=== PATIENT | female | born 1990 | race Caucasian/White ===

== ENCOUNTER 2017-10-17 11:46 | Day surgery (SDC) | payer MEDICAID, OTHER ==
[2017-10-17 12:15] VITALS: BMI 31.9
[2017-10-17 12:16] VITALS: BP 129/63; TEMP 98
[2017-10-17] MEDS ORDERED: Acetaminophen 500 MG TAB PO SCH (12:45)
[2017-10-17] MEDS ORDERED: Lactated Ringer's 1,000 ML IV SCH (12:45)
--- NOTE | 2017-10-17 12:48 | PDOC.FPROB ---
FMR OB H&P: HPI - History of Present Illness Chief Complaint: Headache History of Present Illness: 27 y/o at 34.2 wks by 17.3 wk sono consistent with LMP presents 2/2 concerns about elevated BP w/ associated headache. Pt was seen at [facility] yesterday w/ one elevated BP at 141 SBP and subsequent pressure in the low 130's. Pt and mother report that there were concerns about her elevated BP as she was also endorsing some headache and blurry vision. Blood and urine labs were ordered at [facility] and she was sent home w/ ER percautions for Pre-eclampsia including worsening headache. Pt reports that she continued to have headache and woke-up with TORRES this AM. She notes that her headache is still present, but is better than it was when she first awoke. Also endorsing some blurry vision with this. Denies any abdominal pain. Has not tried taking any medication at home for her headache today. Denies any problems with this . No hx of Pre-E or gestational HTN during her prior pregnancies. Primary Care Physician: [facility] Sung Mcghee FMR OB H&P: Current - Care : 3 Para: 2 Gestational age: 34.2 Due date: 11/22/17 Dating Criteria: 17.3 wk sono Course/Complications: chlamydia s/p treatment FMR OB H&P: History - Past Medical History PMH: Asthma Tobacco use - Surgical History Sx History: None - Family History Family History: HTN FMR OB H&P: Medications - Current Home Medications: Medication Instructions Recorded Confirmed Type Vitamin 1 tablet PO DAILY 05/01/14 10/17/17 History Allergies/Adverse Reactions: Allergies Allergy/AdvReac Type Severity Reaction Status Date / Time codeine Allergy Rash Verified 10/17/17 12:10 FMR OB H&P: ROS - Review of Systems Eyes: reports: vision changes Gastrointestinal: denies: abdominal pain Neurologic: reports: headache FMR OB H&P: Vital Signs - Maternal Vital signs: Vital Signs - First Documented Temp Pulse Resp BP 98.0 F 70 18 129/63 10/17/17 12:10 10/17/17 12:10 10/17/17 12:10 10/17/17 12:10 - Heart Tones Baseline: 130 Variability: moderate Acceleration: present FMR OB H&P: Physical Exam - Physical Exam General: NAD, awake, alert and oriented HEENT: normocephalic and atraumatic Chest: non-tender to palpation Heart: RRR, normal S1/S2 General: CTAB, no respiratory distress Abdomen: gravid Neurological: cranial nerves II through XII intact FMR OB H&P: A/P - Problem List (1) Headache Status: Acute Code(s): R51 - HEADACHE Assessment and Plan: Patient reportedly with elevated BP x1 >140 SBP at [facility] yesterday and also w/ elevated pressures at another prior visit, but unsure of the exact values W/ headache and some vision changes w/ patient and mother concerned for possible pre-eclampsia BP 120's/60's x3 since arrival Blood work obtained at [facility] yesterday including CBC and CMP which we have requested and is being faxed over [facility] w/ reactive strip Will check Urine Protein/Cr ratio to complete Pre-E r/o Give 1 gram of tylenol and 1 L LR and eval for improvement/resolution of TORRES Discussion: Date/Time: 10/17/17 0854 This H&P was discussed with [] and [] who agree with the above documentation and plan. Attending Addendum - Attending Addendum Date/Time: 10/17/17 9487 I personally evaluated the patient and discussed the management with Dr. Trotter. I agree with the History, Examination, Assessment and Plan documented above with any addition or exceptions noted below. No e/o preeclampsia. TORRES resolved with tylenol. status reassuring with reactive NST. D/c home with precautions.
[2017-10-17 13:51] LABS: Creatinine, Urine 81.43 mg/dL (47-110); Protein, Urine Random Quant Less than 10 mg/dL (1-14)
--- NOTE | 2017-10-17 20:49 | PDOC.EVN ---
Addendum entered and electronically signed by Matt Trotter MD 10/17/17 21: 06: Please note the time of this note is incorrect as it was written after the fact. Time of these observations and medical decision making were performed in conjunction with my attending physician Dr. Jannie Augustin just prior to discharge at approximately 1430. Original Note: Event Note - Event Note Event Note: Pt w/ BP's ranging from 90's-120s SBP and 50's-60's DBP. Blood work obtained at [facility] yesterday reviewed (CBC, CMP, Urine protein/Cr ratio) which were all normal and without evidence of thrombocytopenia, transaminitis, or elevated Urine Pro/ Cr ratio. Repeat Urine Protein/Cr ratio obtained also normal. Pt's headache resolved s/p administration of 1 gram of tylenol and 1L LR. Advised that she can use tylenol at home if sxs return and discussed return percuations such as BP >140/90 in the setting of intractable headache, vision changes, RUQ abdominal pain, and worsening edema. Pt and family member in room expressed understanding and all questions answered prior to discharge home. Pt to follow- up with [facility] at her regularly scheduled appointment. <Matt Trotter - Last Filed: 10/17/17 20:45> Attending Addendum - Attending Addendum Date/Time: 10/17/172246 Please see my note addendum on H&P documentation. <Jannie Augustin - Last Filed: 10/17/17 22:48>
== END 2017-10-17 14:35 | disposition home or self-care (01) ==
LOC: L&D/OP 11:46
PROVIDERS: ATTEND Obstetrics & Gynecology
DX: O99.89 Other specified diseases and conditions complicating pregnancy, childbirth and the puerperium (principal); R51 Headache; O99.512 Diseases of the respiratory system complicating pregnancy, second trimester; J45.909 Unspecified asthma, uncomplicated; Z3A.17 17 weeks gestation of pregnancy; Z87.891 Personal history of nicotine dependence; Z79.899 Other long term (current) drug therapy; Z88.5 Allergy status to narcotic agent
CPT/HCPCS: 82570; 84156; 96360; 96361; 99283

== ENCOUNTER 2017-11-19 14:48 | Inpatient (IN) | payer MEDICAID, OTHER, SELFPAY ==
--- NOTE | 2017-11-19 15:11 | PDOC.FPROB ---
FMR OB H&P: HPI - History of Present Illness Chief Complaint: headache Indentification: 27yo History of Present Illness: 27yo @ 40weeks EGA by LMP and 17.3 week US presents for 1 day hx of headach, visual changes, and L arm tingling. Pt presented to [facility] and then was instructed to come to [place] as she was found to have elevated BP. Pt reports sympom onset was today. Visual changes are "white spots" that started/persisted today, L arm tingling is in fingertips. Reports pt felt all three symptoms in similar manner weeks ago when she had elevated BP then but was sent home after some lab tests. On checkout from clinic, UA there had positive nitrites Primary Care Physician: Harshad - [facility] FMR OB H&P: Current - Care : 3 Para: 2001 Gestational age: 40 Due date: 11/19/2017 Dating Criteria: LMP/17.3week US Total weight gain: 61 lb Course/Complications: Poor care, recent incarceration, Chlamydia s/p tx, E.coli UTI s/p tx, elevated BP during (no dx of gestational htn or pre-e) - OB Labs Blood type: O RH: positive Antibody Screen: negative HIV: negative GBS: positive Additional labs: HepC negative, PPD negative FMR OB H&P: History - Past Medical History PMH: Asthma - OB History OB History: 1 2013: healthy male, post term 2 2015: female born at 38weeks EGA, had "stomach issues" possible gastroschisis, had to have surgery - Surgical History Sx History: none - Social History Social History: Tobacco- 1/2 ppd x 2years EtOH- denies Drugs- denies FMR OB H&P: Medications - Current Home Medications: Medication Instructions Recorded Confirmed Type Vitamin 1 tablet PO DAILY 05/01/14 11/19/17 History ALButerol Sulfate [Ventolin] 3 ml NEB Q8HR PRN 11/19/17 11/19/17 History Allergies/Adverse Reactions: Allergies Allergy/AdvReac Type Severity Reaction Status Date / Time codeine Allergy Rash Verified 10/17/17 12:10 FMR OB H&P: ROS - Review of Systems General: denies: fever/chills Eyes: reports: vision changes. denies: double vision, scotomas ENT: denies: nasal congestion, rhinorrhea, sinus pain/pressure Cardiovascular: reports: edema. denies: chest pain, palpitation, orthopnea Respiratory: denies: cough, congestion, shortness of breath Gastrointestinal: reports: abdominal pain (mild discomfort in bilat upper quadrants) Genitourinary (Female): reports: contractions. denies: vaginal discharge ( infrequent), vaginal pain, vaginal bleeding Musculoskeletal: denies: pain, stiffness Neurologic: reports: headache, other (paresthesia per hpi) Integumentary: denies: rash, lesions Endocrine: denies: polydipsia, polyuria Hematologic/Lymphatic: denies: prolonged or excessive bleeding FMR OB H&P: Vital Signs - Heart Tones Baseline: 120 Variability: moderate Acceleration: present Deceleration: absent Category: category 1 [place] contractions every: 6-10min FMR OB H&P: Physical Exam - Physical Exam General: NAD, awake, alert and oriented HEENT: normocephalic and atraumatic, PERRLA, EOMI, MMM Neck: supple, trachea midline Chest: non-tender to palpation Heart: RRR, normal S1/S2 General: CTAB, no respiratory distress Abdomen: gravid, bowel sound present Musculoskeletal: pulses present, no atrophy Skin: no rash, good tugor Lymphatic: no unusual bruising or bleeding, no purpura, no petechia Psychiatric: good judgement and insight, normal mood and affect - Pelvic Exam Vulva: no lesions, no blood SVE: 1/thick/-3 Godinez score: 2 FMR OB H&P: A/P - Problem List (1) Gestational hypertension Current Visit: Yes Status: Acute Code(s): O13.9 - GESTATIONAL HTN W/O SIGNIFICANT PROTEINURIA, UNSP TRIMESTER (2) Encounter for induction of labor Current Visit: Yes Status: Acute Code(s): Z34.90 - ENCNTR FOR SUPRVSN OF NORMAL , UNSP, UNSP TRIMESTER (3) UTI (urinary tract infection) Current Visit: Yes Status: Acute (4) GBS (group B streptococcus) infection Current Visit: Yes Status: Acute Code(s): A49.1 - STREPTOCOCCAL INFECTION, UNSPECIFIED SITE Disposition: This is a 27yo at 40w EGA by LMP confirmed by 17.3 week US presents with gestational htn. Gestational HTN A- Pt has had intermittent high BPs with SBP in 140's throughout and in hospital with repeat elevated BPs. Most recent BP here is SBP 128. Pt has not been on medication. Though pt complains of additional headache and visual changes they do not sound like scotomas per her hx. P- Monitor BP -monitor for severe features of pre-e -U creatinine and protein -CMP, CBC -Tylenol PRN Induction of Labor A- Godinez score of 2, contractions irregular P- will start cytotec -SVE q4hr GBS infection A- Pt is in early stages of IOL, tested positive for GBS at clinic P- Will start Penicillin when starting pitocin Asymptomatic UTI A- Pt had positive nitrite on UA at clinic. No dysuria. P- Ceftriaxone 1g Attending Addendum - Attending Addendum Date/Time: 11/19/17 7173 I personally evaluated the patient and discussed the management with Drs. Daniels & Taz. I agree with the History, Examination, Assessment and Plan documented above with any addition or exceptions noted below. Multip with unfavorable cervix at term. TORRES and visual symptoms have resolved. Known to be GBS positive. Possible UTI with positive nitrite. FOB incarcerated. Seems to have good family support with [id number]. Consider UDS. Will receive rocephin for UTI and PCN for GBS prophylaxis. Discussed IOL with patient and family. Anticipatory guidance given. Date/Time: 11/20/17 5734 I personally evaluated the patient and discussed the management with Dr. Daniels and Luli at time of admission. I agree with the History, Examination, Assessment and Plan documented above with any addition or exceptions noted below.
[2017-11-19] MEDS ORDERED: Acetaminophen 500 MG TAB PO PRN (15:36)
[2017-11-19 15:45] LABS: #Eosinphils 0.1 thou/uL (0.0-0.7); #Lymphocytes 2.7 thou/uL (1.20-3.40); #Monocytes 0.9 thou/uL (0.11-0.59); #Neutrophils 7.1 thou/uL (1.40-6.50); %Basophils 0.4 % (0.0-1.0); %Eosinophils 0.9 % (0.0-10.0); %Monocytes 8.3 % (0.0-10.0); %Neutrophils 65.4 % (42.0-75.0); Hemoglobin 11.5 g/dL (12.0-16.0); Mean Corpuscular Hemoglobin 30.3 pg (27.0-31.0); Mean Corpuscular Volume 91.6 fL (78.0-98.0); Platelet Count 224 thou/uL (130-400); RBC Distribution Width 12.3 % (11.5-14.5); Red Blood Cell (RBC) Count 3.81 mill/uL (4.20-5.40); White Blood Cell (WBC) Count 10.8 thou/uL (4.8-10.8)
[2017-11-19 15:50] LABS: Creatinine, Urine 61.74 mg/dL (47-110); Protein, Urine Random Quant Less than 10 mg/dL (1-14)
[2017-11-19 16:00] VITALS: BMI 33.7
[2017-11-19 16:02] LABS: ALT (SGPT) 10 U/L (8-55); AST (SGOT) 14 U/L (5-34); Albumin 3.3 g/dL (3.5-5.0); Alkaline Phosphatase 158 U/L (40-150); Anion Gap 13 mmol/L (10-20); BUN (Urea Nitrogen) 11 mg/dL (7.0-18.7); Bilirubin, Total 0.8 mg/dL (0.2-1.2); Calc. Creatinine Clearance 186 mL/min (70-130); Calcium 9.5 mg/dL (7.8-10.44); Carbon Dioxide 19 mmol/L (22-29); Chloride 107 mmol/L (98-107); Estimated GFR-MDRD Greater than 90; Globulin 3.1 g/dL (2.4-3.5); Glucose 109 mg/dL (70-105); Potassium 4.3 mmol/L (3.5-5.1); Protein, Total 6.4 g/dL (6.0-8.3); Sodium 135 mmol/L (136-145)
[2017-11-19] MEDS ORDERED: Misoprostol 100 MCG TAB VAG ONE (16:21)
[2017-11-19] MEDS ORDERED: Ondansetron HCl/PF 4 MG/2 ML Vial IVP PRN (16:22)
[2017-11-19] MEDS ORDERED: Promethazine HCl 25 MG/ML VIAL IM PRN (16:22)
[2017-11-19 17:08] LABS: Syphilis Antibody Nonreactive (Nonreactive); Syphilis Antibody Index 0.03 S/CO (<1.00 Non-Reactive)
[2017-11-19] MEDS: Lactated Ringer's 1,000 ML IV SCH (17:15)
[2017-11-19] MEDS: cefTRIAXone\\ROCEPHIN 1 GM in Sodium Chloride 0.9% 100 ML IVPB SCH (17:51)
[2017-11-19] MEDS ORDERED: Misoprostol 100 MCG TAB VAG SCH (18:00)
[2017-11-19 18:06] LABS: Amphetamine Not Detected (NotDetected); Barbiturates Screen Not Detected (NotDetected); Benzodiazepine Screen Not Detected (NotDetected); Cocaine Metabolite Screen Not Detected (NotDetected); Medtox Control Line Valid? VALID (VALID); Medtox Reader # READER 4; Methadone Not Detected (NotDetected); Methamphetamine Not Detected (NotDetected); Opiate Screen Not Detected (NotDetected); Oxycodone Screen Not Detected (NotDetected); Phencyclidine (PCP) Not Detected (NotDetected); THC/Cannabinoid Screen Not Detected (NotDetected); Tricyclic Screen Not Detected (NotDetected)
[2017-11-19 18:13] LABS: HIV (1/2) Antibody/Antigen Non-Reactive (NonReactive); HIV 1/2 INDEX 0.08 S/CO (<1.00); Hep B Surf Ag Non-Reactive S/CO (NonReactive)
--- NOTE | 2017-11-19 22:35 | PDOC.LDPN ---
Labor & Delivery Progress Note - Subjective Subjective: comfortable - Objective Vital signs reviewed and normal: yes General: NAD, resting Dilation: 2 cm Effacement: 50% Station: -3 FHT: category 1, variability present (moderate) [place] contractions every: 1-2 minutes - Assessment (1) Encounter for induction of labor Code(s): Z34.90 - ENCNTR FOR SUPRVSN OF NORMAL , UNSP, UNSP TRIMESTER Current Visit: Yes Status: Acute (2) GBS (group B streptococcus) infection Code(s): A49.1 - STREPTOCOCCAL INFECTION, UNSPECIFIED SITE Current Visit: Yes Status: Acute (3) Gestational hypertension Code(s): O13.9 - GESTATIONAL HTN W/O SIGNIFICANT PROTEINURIA, UNSP TRIMESTER Current Visit: Yes Status: Acute -: This is a 27 yo female at 40 wks by LMP/ 17.3wk sono Induction of labor -Cytotec given at 1900 with a change from 1/0/-3 to 2/50/-3 at present check. FHTs shows Cat 1 with contractions every 1-2 minutes. We are holding off on a second dose of cytotec at this time due to contractions and will reassess in 2 hrs. GBS positive -Due to change we are starting penicillin at this time Possible gestational HTN -BP WNL <Aman Bingham - Last Filed: 11/19/17 22:32> - Assessment (1) Gestational hypertension Code(s): O13.9 - GESTATIONAL HTN W/O SIGNIFICANT PROTEINURIA, UNSP TRIMESTER Current Visit: Yes Status: Acute (2) Encounter for induction of labor Code(s): Z34.90 - ENCNTR FOR SUPRVSN OF NORMAL , UNSP, UNSP TRIMESTER Current Visit: Yes Status: Acute (3) UTI (urinary tract infection) Current Visit: Yes Status: Acute (4) GBS (group B streptococcus) infection Code(s): A49.1 - STREPTOCOCCAL INFECTION, UNSPECIFIED SITE Current Visit: Yes Status: Acute <Jordan Connell - Last Filed: 11/21/17 07:37> Attending Addendum - Attending Addendum Date/Time: 11/21/17 0737 I personally evaluated the patient and discussed the management with Dr. Bingham I agree with the History, Examination, Assessment and Plan documented above with any addition or exceptions noted below. <Jordan Connell - Last Filed: 11/21/17 07:37>
[2017-11-19] MEDS ORDERED: Penicillin G Potassium 5 MILL.UNITS in Sodium Chloride 0.9% 100 ML IVPB SCH (23:00)
--- NOTE | 2017-11-20 00:50 | PDOC.LDPN ---
Labor & Delivery Progress Note - Subjective Subjective: comfortable, no concerns - Objective Vital signs reviewed and normal: yes General: NAD, resting Uterine fundus: non tender Dilation: 2 cm Effacement: 50% Station: -3 FHT: category 1, variability present [place] contractions every: 1-3 - Assessment (1) Encounter for induction of labor Code(s): Z34.90 - ENCNTR FOR SUPRVSN OF NORMAL , UNSP, UNSP TRIMESTER Current Visit: Yes Status: Acute (2) GBS (group B streptococcus) infection Code(s): A49.1 - STREPTOCOCCAL INFECTION, UNSPECIFIED SITE Current Visit: Yes Status: Acute (3) Gestational hypertension Code(s): O13.9 - GESTATIONAL HTN W/O SIGNIFICANT PROTEINURIA, UNSP TRIMESTER Current Visit: Yes Status: Acute Plan: continue plan of care -: This is a 27 yo female at 40.1 wks by LMP/ 17.3wk sono Induction of labor -Cytotec given at 1900. Unchanged since last examination. FHTs shows Cat 1 with contractions every 1-3 minutes. We will start pitocin after 2nd dose of penicillin GBS positive -PCN x1 Possible gestational HTN -BP WNL
[2017-11-20] MEDS: Pen G 2.5 MILL.UNITS/50 ML BAG IVPB SCH ×5 (03:15→21:05)
--- NOTE | 2017-11-20 03:16 | PDOC.LDPN ---
Labor & Delivery Progress Note - Subjective Subjective: comfortable, no concerns - Objective Vital signs reviewed and normal: yes General: NAD, resting Dilation: 2 Effacement: 75% Station: -3 FHT: category 1, variability present (Baseline 120, moderate variability, no decels, no accels) - Assessment (1) Encounter for induction of labor Code(s): Z34.90 - ENCNTR FOR SUPRVSN OF NORMAL , UNSP, UNSP TRIMESTER Current Visit: Yes Status: Acute (2) GBS (group B streptococcus) infection Code(s): A49.1 - STREPTOCOCCAL INFECTION, UNSPECIFIED SITE Current Visit: Yes Status: Acute (3) Gestational hypertension Code(s): O13.9 - GESTATIONAL HTN W/O SIGNIFICANT PROTEINURIA, UNSP TRIMESTER Current Visit: Yes Status: Acute Plan: continue plan of care -: This is a 27 yo female at 40.1 wks by LMP/ 17.3wk sono Induction of labor -Cytotec given at 1900. 2/75/-3 at this check. FHTs shows Cat 1 with contractions every 1-5 minutes. We are starting the second dose of PCN as well as pitocin. GBS positive -PCN x2 Possible gestational HTN -BP WNL
[2017-11-20] MEDS: NS w/ Oxytocin 10 units 500 ML IV SCH ×2 (03:29→16:19)
[2017-11-20] MEDS: Lactated Ringer's 1,000 ML IV SCH ×2 (07:09→14:37)
--- NOTE | 2017-11-20 07:10 | PDOC.LDPN ---
Labor & Delivery Progress Note - Subjective Subjective: comfortable, painful contractions (mildly), other (no headache/ visual disturbance/cp/sob) - Objective Vital signs reviewed and normal: yes (BP 122/78, HR 61) General: NAD, resting Uterine fundus: non tender SVE: 3/75/-3 FHT: category 1 [place] contractions every: 3min Resuscitative measures: maternal IV fluids - Assessment (1) Gestational hypertension Code(s): O13.9 - GESTATIONAL HTN W/O SIGNIFICANT PROTEINURIA, UNSP TRIMESTER Current Visit: Yes Status: Acute (2) Encounter for induction of labor Code(s): Z34.90 - ENCNTR FOR SUPRVSN OF NORMAL , UNSP, UNSP TRIMESTER Current Visit: Yes Status: Acute (3) UTI (urinary tract infection) Current Visit: Yes Status: Acute (4) GBS (group B streptococcus) infection Code(s): A49.1 - STREPTOCOCCAL INFECTION, UNSPECIFIED SITE Current Visit: Yes Status: Acute Plan: continue plan of care -: This is a 27 yo female at 40.1 wks by LMP/17.3wk sono Induction of labor -Cytotec given at 1900. 375/-3 at this check 0710. FHTs shows Cat 1 with contractions every 3 minutes. -continue pitocin GBS positive -PCN being administered Possible gestational HTN -BP WNL -no symptoms of pre-eclampsia <Jordan Daniels - Last Filed: 11/20/17 07:11> - Assessment (1) Gestational hypertension Code(s): O13.9 - GESTATIONAL HTN W/O SIGNIFICANT PROTEINURIA, UNSP TRIMESTER Current Visit: Yes Status: Acute (2) Encounter for induction of labor Code(s): Z34.90 - ENCNTR FOR SUPRVSN OF NORMAL , UNSP, UNSP TRIMESTER Current Visit: Yes Status: Acute (3) UTI (urinary tract infection) Current Visit: Yes Status: Acute (4) GBS (group B streptococcus) infection Code(s): A49.1 - STREPTOCOCCAL INFECTION, UNSPECIFIED SITE Current Visit: Yes Status: Acute <Willie Banegas - Last Filed: 11/20/17 10:41> Attending Addendum - Attending Addendum Date/Time: 11/20/17 1040 I personally evaluated the patient and discussed the management with Dr. Daniels. I agree with the History, Examination, Assessment and Plan documented above with any addition or exceptions noted below. No pre-e. Continue care plan. Discussed with patient. All questions and concerns addressed. She is appreciative of care. <Willie Banegas - Last Filed: 11/20/17 10:41>
[2017-11-20] MEDS ORDERED: Fentanyl 4 mcg/Bup 0.1% Cadd 100 ML ONE ×3 (10:55→19:28)
[2017-11-20] MEDS ORDERED: Acetaminophen 325 MG TAB PO PRN (11:13)
[2017-11-20] MEDS ORDERED: diphenhydrAMINE 50 MG/ML VIAL IVP PRN (11:13)
[2017-11-20] MEDS ORDERED: Ondansetron HCl/PF 4 MG/2 ML Vial IVP PRN (11:13)
[2017-11-20] MEDS ORDERED: Naloxone HCl 0.4 mg/ml Vial IVP PRN ×2 (11:13)
[2017-11-20] MEDS ORDERED: Promethazine HCl 25 MG/ML VIAL IM PRN (11:13)
[2017-11-20] MEDS ORDERED: Eucerin (Mineral Oil/Petrolatum,White) 30 gm Jar TOP PRN (11:13)
[2017-11-20] MEDS ORDERED: ePHEDrine/0.9% NaCl/PF SYRINGE 50 mg/10 ml SLOW IVP PRN (11:13)
[2017-11-20] MEDS ORDERED: Lactated Ringer's 500 ML IV PRN (11:13)
[2017-11-20] MEDS ORDERED: fentaNYL Citrate/PF 400 MCG, Bupivacaine 0.5% 20 ML in Sodium Chloride 0.9% 72 ML EPIDURAL SCH (11:15)
[2017-11-20] MEDS ORDERED: Communication Order-Pharmacy FS SCH (11:15)
[2017-11-20] MEDS ORDERED: Fentanyl 4 mcg/Bup 0.1% Cadd 100 ML in Premix Bag 1 BAG EPIDURAL SCH (11:21)
--- NOTE | 2017-11-20 11:21 | PDOC.LDPN ---
Labor & Delivery Progress Note - Subjective Subjective: comfortable, other (more comfortable after epidural. No headache/cp/ sob/abd pain/paresthesia) - Objective Vital signs reviewed and normal: yes Abnormal vital signs: Some intermittent BPs in SBP 130's General: NAD, resting SVE: 3/75/-3 FHT: category 1 [place] contractions every: 2min Resuscitative measures: maternal IV fluids - Assessment (1) Gestational hypertension Code(s): O13.9 - GESTATIONAL HTN W/O SIGNIFICANT PROTEINURIA, UNSP TRIMESTER Current Visit: Yes Status: Acute (2) Encounter for induction of labor Code(s): Z34.90 - ENCNTR FOR SUPRVSN OF NORMAL , UNSP, UNSP TRIMESTER Current Visit: Yes Status: Acute (3) UTI (urinary tract infection) Current Visit: Yes Status: Acute (4) GBS (group B streptococcus) infection Code(s): A49.1 - STREPTOCOCCAL INFECTION, UNSPECIFIED SITE Current Visit: Yes Status: Acute Plan: continue plan of care, pitocin for augmentation -: This is a 27 yo female at 40.1 wks by LMP/17.3wk sono Medically indicated Induction of labor -Cytotec x1 given at 1900. 3/75/-3 at this check 1130, unchanged but pt having adequet frequency of contractions. FHTs shows Cat 1 with contractions every 2 minutes. -continue pitocin GBS positive -PCN being administered Gestational HTN -BP not near severe range -no symptoms of pre-eclampsia -continue to monitor
--- NOTE | 2017-11-20 13:39 | PDOC.LDPN ---
Labor & Delivery Progress Note - Subjective Subjective: comfortable (epidural in place) - Objective Vital signs reviewed and normal: yes General: NAD, resting Dilation: 3 Effacement: 75% Station: -3 FHT: category 1, variability present [place] contractions every: 3 min - Assessment (1) Encounter for induction of labor Code(s): Z34.90 - ENCNTR FOR SUPRVSN OF NORMAL , UNSP, UNSP TRIMESTER Current Visit: Yes Status: Acute (2) GBS (group B streptococcus) infection Code(s): A49.1 - STREPTOCOCCAL INFECTION, UNSPECIFIED SITE Current Visit: Yes Status: Acute (3) Gestational hypertension Code(s): O13.9 - GESTATIONAL HTN W/O SIGNIFICANT PROTEINURIA, UNSP TRIMESTER Current Visit: Yes Status: Acute Plan: continue plan of care, pitocin for augmentation (currently at 18) -: -Induction of labor check staying the same dilation, but more anterior FHT 110s with good variability, no decels, a couple accels pitocin up to 18 with contractions every 2-3 minutes continue with current management regimen, recheck in 2 hours -GBS positive has received adequate Fina, continue until delivery -gestational HTN most recent 109/55, no elevated BP levels since the last check
--- NOTE | 2017-11-20 16:37 | PDOC.LDPN ---
Labor & Delivery Progress Note - Subjective Subjective: comfortable - Objective Vital signs reviewed and normal: yes General: NAD, resting Dilation: 4.5 Effacement: 75% Station: -3 [place] contractions every: 2 minutes - Assessment (1) Encounter for induction of labor Code(s): Z34.90 - ENCNTR FOR SUPRVSN OF NORMAL , UNSP, UNSP TRIMESTER Current Visit: Yes Status: Acute (2) GBS (group B streptococcus) infection Code(s): A49.1 - STREPTOCOCCAL INFECTION, UNSPECIFIED SITE Current Visit: Yes Status: Acute (3) Gestational hypertension Code(s): O13.9 - GESTATIONAL HTN W/O SIGNIFICANT PROTEINURIA, UNSP TRIMESTER Current Visit: Yes Status: Acute Plan: continue plan of care -: -Induction of labor check staying the same dilation, but more anterior FHT 110s with good variability, no decels patient received epidural sometime late this morning pitocin up to 20 with contractions every 2-3 minutes continue with current management regimen, recheck around 17:00 and check to see if head is engaged and AROM would be possible -GBS positive has received adequate Fina, continue until delivery -gestational HTN most recent 111/, no elevated BP levels since the last check
[2017-11-20] MEDS ORDERED: Bupivacaine 0.25% HCL 30 ML VIAL ONE (21:00)
--- NOTE | 2017-11-20 21:47 | PDOC.LDPN ---
Labor & Delivery Progress Note - Subjective Subjective: comfortable - Objective Vital signs reviewed and normal: yes General: NAD, resting Uterine fundus: non tender Dilation: 5 Effacement: 75% Station: -2 FHT: category 2 (120/poor variablility/+ accels/no decels) [place] contractions every: 2-3min AROM: clear fluid IUPC placed: yes - Assessment (1) Encounter for induction of labor Code(s): Z34.90 - ENCNTR FOR SUPRVSN OF NORMAL , UNSP, UNSP TRIMESTER Current Visit: Yes Status: Acute (2) GBS (group B streptococcus) infection Code(s): A49.1 - STREPTOCOCCAL INFECTION, UNSPECIFIED SITE Current Visit: Yes Status: Acute (3) Gestational hypertension Code(s): O13.9 - GESTATIONAL HTN W/O SIGNIFICANT PROTEINURIA, UNSP TRIMESTER Current Visit: Yes Status: Acute (4) Drug use complicating Code(s): O99.320 - DRUG USE COMPLICATING , UNSPECIFIED TRIMESTER Current Visit: No Status: Acute Plan: pitocin for augmentation -: 27yo @ 40.1 weeks EGA by LMP and 17.3 week US Induction of labor - Successful AROM with clear fluid @ 2130 - IUPC smoothly placed - FHT 120s with poor variability, no decels - Comfortable with epidural - Pitocin at 20 with contractions every 2-3 minutes - Will monitor mvus and recheck in 2 hours GBS positive - Has received adequate penicillin G - Continue until delivery Gestational HTN - Most recent 58 - no elevated BP levels since the last check - Continue to monitor <Maricarmen Keller - Last Filed: 11/20/17 22:16> - Assessment (1) Gestational hypertension Code(s): O13.9 - GESTATIONAL HTN W/O SIGNIFICANT PROTEINURIA, UNSP TRIMESTER Current Visit: Yes Status: Acute (2) Encounter for induction of labor Code(s): Z34.90 - ENCNTR FOR SUPRVSN OF NORMAL , UNSP, UNSP TRIMESTER Current Visit: Yes Status: Acute (3) UTI (urinary tract infection) Current Visit: Yes Status: Acute Qualifiers: Urinary tract infection type: acute pyelonephritis Qualified Code(s): N10 - Acute pyelonephritis (4) GBS (group B streptococcus) infection Code(s): A49.1 - STREPTOCOCCAL INFECTION, UNSPECIFIED SITE Current Visit: Yes Status: Acute <Jordan Connell - Last Filed: 11/21/17 07:45> Attending Addendum - Attending Addendum Date/Time: 11/21/17743 I personally evaluated the patient and discussed the management with Dr. Keller I agree with the History, Examination, Assessment and Plan documented above with any addition or exceptions noted below. Doing well. Dysfunctional first stage. Will likely enter active phase following AROM & IUPC. Anticipate . <Jordan Connell - Last Filed: 11/21/17 07:45>
[2017-11-20] MEDS ORDERED: NS / Oxytocin 40 units/1000ml 1,000 ML ONE (23:08)
[2017-11-20] MEDS ORDERED: Misoprostol 200 MCG TAB ONE (23:08)
[2017-11-20] MEDS ORDERED: Lidocaine 1% (PF) 30 ML VIAL ONE (23:08)
[2017-11-20] MEDS ORDERED: Carboprost 250 MCG/ML AMP ONE (23:18)
[2017-11-20] MEDS ORDERED: Methylergonovine 0.2 MG/ML VIAL ONE (23:18)
[2017-11-21] MEDS ORDERED: NS / Oxytocin 40 units/1000ml 1,000 ML ONE (00:58)
[2017-11-21] MEDS ORDERED: NS / Oxytocin 40 units/1000ml 1,000 ML IV SCH (02:36)
[2017-11-21] MEDS ORDERED: Milk Of Magnesia 30 ML UDCUP PO PRN (02:36)
[2017-11-21] MEDS ORDERED: Bisacodyl 10 MG SUPP PR PRN (02:36)
[2017-11-21] MEDS: Pen G 2.5 MILL.UNITS/50 ML BAG IVPB SCH (02:50)
[2017-11-21] MEDS: Lactated Ringer's 1,000 ML IV SCH (02:50)
[2017-11-21] MEDS: cefTRIAXone\\ROCEPHIN 1 GM in Sodium Chloride 0.9% 100 ML IVPB SCH (02:50)
--- NOTE | 2017-11-21 06:52 | PDOC.PP ---
Post Progress Note Post Day #: 1 Subjective: Pt reports feeling well this morning with no complaints. Tolerating PO intake, urinating, denies any pain, minimal spotting. No BM or flatus. PO intake tolerated: yes Flatus: no Ambulation: yes Vital Signs (12 hours) Temp Pulse Resp BP Pulse Ox 11/21/17 03:40 98.0 F 71 16 125/70 11/21/17 02:05 98.2 F 86 16 110/68 98 Weight Weight 92.079 kg - Physical Examination General: NAD Cardiovascular: no m/r/g, RRR Respiratory: clear to auscultation bilaterally, non-labored breathing Abdominal: + bowel sounds, no distention Fundus firm & at: 3 cm below umbilicus Skin: no rash Neurological: no gross focal deficits Psychiatric: A&Ox3, normal affect Result Diagrams: 11/19/17 15:33 11/19/17 15:33 Additional Labs: Post Labs Blood Type O POSITIVE 11/19/17 17:21 Hep Bs Antigen Non-Reactive S/CO (NonReactive) 11/19/17 15:33 (1) Gestational hypertension Code(s): O13.9 - GESTATIONAL HTN W/O SIGNIFICANT PROTEINURIA, UNSP TRIMESTER Status: Acute (2) Encounter for induction of labor Code(s): Z34.90 - ENCNTR FOR SUPRVSN OF NORMAL , UNSP, UNSP TRIMESTER Status: Acute (3) UTI (urinary tract infection) Status: Acute (4) GBS (group B streptococcus) infection Code(s): A49.1 - STREPTOCOCCAL INFECTION, UNSPECIFIED SITE Status: Acute - Assessment/Plan 27yo who delivered a healthy TAGA boy via at 2335 on 11/20/2017 @ 40.1 weeks EGA by LMP and 17.3 week US Post Care A- Pt doing well, had 337 QBL. Good PO intake/ambulation/pain controll. No problems with breast feeding. P- continue to monitor, await flatus/BM Gestational HTN A- BP WNL, no headaches/visual disturbance P- continue to monitor GBS positive - status post penicillin G <Jordan Daniels - Last Filed: 11/21/17 07:08> Vital Signs (12 hours) Temp Pulse Resp BP Pulse Ox 11/21/17 08:20 98 11/21/17 08:00 97.7 F 54 L 20 131/78 95 11/21/17 03:40 98.0 F 71 16 125/70 11/21/17 02:05 98.2 F 86 16 110/68 98 Weight Weight 92.079 kg Result Diagrams: 11/19/17 15:33 11/19/17 15:33 Additional Labs: Post Labs Blood Type O POSITIVE 11/19/17 17:21 Hep Bs Antigen Non-Reactive S/CO (NonReactive) 11/19/17 15:33 (1) Gestational hypertension Code(s): O13.9 - GESTATIONAL HTN W/O SIGNIFICANT PROTEINURIA, UNSP TRIMESTER Status: Acute (2) Encounter for induction of labor Code(s): Z34.90 - ENCNTR FOR SUPRVSN OF NORMAL , UNSP, UNSP TRIMESTER Status: Acute (3) UTI (urinary tract infection) Status: Acute Qualifiers: Urinary tract infection type: acute pyelonephritis Qualified Code(s): N10 - Acute pyelonephritis (4) GBS (group B streptococcus) infection Code(s): A49.1 - STREPTOCOCCAL INFECTION, UNSPECIFIED SITE Status: Acute <Willie Banegas - Last Filed: 11/21/17 10:30> Attending Addendum - Attending Addendum Date/Time: 11/21/17 1030 I personally evaluated the patient and discussed the management with Dr. Daniels. I agree with the History, Examination, Assessment and Plan documented above with any addition or exceptions noted below. <Willie Banegas - Last Filed: 11/21/17 10:30>
[2017-11-21] MEDS: Ferrous Sulfate 325 MG TAB PO SCH ×2 (07:43→17:26)
--- NOTE | 2017-11-21 08:09 | OP-2 ---
DELIVERING PHYSICIAN: Dr. Maricarmen Keller, PGY-1 ATTENDING: Dr. Jordan Connell PROCEDURE: Spontaneous vaginal delivery. ANESTHESIA: Epidural. ESTIMATED BLOOD LOSS: 337 mL. PREOPERATIVE DIAGNOSES: 1. Term intrauterine , induction of labor. 2. GBS positive, adequately treated. 3. Gestational hypertension. POSTOPERATIVE DIAGNOSES: 1. Term intrauterine , delivered. 2. GBS positive, adequately treated. 3. Gestational hypertension. INDICATIONS: A 27-year-old female now G3, P3-0-0-3 presents for induction of labor due to post-term dates. DELIVERY NOTE: This is a 27-year-old female now G3, P3-0-0-3 at 41.1 weeks who delivered a viable ma sondra infant at 2335. Following an uneventful antepartum course, a vigorous male was delivered over an intact perineum in the occiput anterior position. Anterior shoulder and then remainder of the body w as delivered. No nuchal cord. The head was held down and mouth and nares were bulb suctioned. Cord clamped after delayed cord clamping and cut and cord blood collected. Placenta delivered intact in the Roberts presentation with a 3-vessel cord noted. Fundal massage was performed and the fundus was firm. The cervix and vagina were inspected and found to have a left ____ and then a minor tear that required no repair. The went to the nursery in good condition for routine care. Apg ars were 9 and 9 at 1 and 5 minutes respectively. The patient tolerated delivery well and went to po stpartum after routine recovery care.
[2017-11-21] MEDS: Ibuprofen 800 MG TAB PO SCH ×3 (08:32→23:44)
[2017-11-21] MEDS: Docusate Calcium (SURFAK) 240 MG CAP PO SCH ×2 (08:33→21:13)
[2017-11-21] MEDS ORDERED: Adacel (T-DAP) 0.5 ML VIAL IM ONE (09:00)
[2017-11-22] MEDS: Ibuprofen 800 MG TAB PO SCH ×2 (01:37→06:22)
--- NOTE | 2017-11-22 06:19 | PDOC.PP ---
Post Progress Note Post Day #: 2 Subjective: Pt reports feeling well this AM with no complaints. Pain is well controlled, scant bleeding, good ambulation and PO intake, positive flatus/BM. No headache/visual disturbance/cp/sob PO intake tolerated: yes Flatus: yes Ambulation: yes Vital Signs (12 hours) Temp Pulse Resp BP Pulse Ox 11/21/17 19:45 98.0 F 60 18 134/82 94 L Weight Weight 92.079 kg - Physical Examination General: NAD Cardiovascular: no m/r/g, RRR Respiratory: clear to auscultation bilaterally, non-labored breathing Abdominal: + bowel sounds, no distention Fundus firm & at: 2cm below umbilicus Skin: no rash Neurological: no gross focal deficits Psychiatric: A&Ox3, normal affect Result Diagrams: 11/19/17 15:33 11/19/17 15:33 Additional Labs: Post Labs Blood Type O POSITIVE 11/19/17 17:21 Hep Bs Antigen Non-Reactive S/CO (NonReactive) 11/19/17 15:33 (1) Gestational hypertension Code(s): O13.9 - GESTATIONAL HTN W/O SIGNIFICANT PROTEINURIA, UNSP TRIMESTER Status: Acute (2) Encounter for induction of labor Code(s): Z34.90 - ENCNTR FOR SUPRVSN OF NORMAL , UNSP, UNSP TRIMESTER Status: Acute (3) UTI (urinary tract infection) Status: Acute Qualifiers: Urinary tract infection type: acute pyelonephritis Qualified Code(s): N10 - Acute pyelonephritis (4) GBS (group B streptococcus) infection Code(s): A49.1 - STREPTOCOCCAL INFECTION, UNSPECIFIED SITE Status: Acute - Assessment/Plan 27yo who delivered a healthy TAGA boy via at 2335 on 11/20/2017 @ 40.1 weeks EGA by LMP and 17.3 week US, induced for gestational HTN Post Care A- Pt doing well, had 337 QBL. Good PO intake/ambulation/pain controll. No problems with breast feeding. P- safe for discharge today Gestational HTN A- Had 2 hypertensive blood pressures yesterday afternoon but now BP WNL, no headaches/visual disturbance P- monitor while here -f/u outpatient GBS positive - status post penicillin G <Jordan Daniels - Last Filed: 11/22/17 06:47> Weight Weight 92.079 kg Result Diagrams: 11/19/17 15:33 11/19/17 15:33 Additional Labs: Post Labs Blood Type O POSITIVE 11/19/17 17:21 Hep Bs Antigen Non-Reactive S/CO (NonReactive) 11/19/17 15:33 (1) Gestational hypertension Code(s): O13.9 - GESTATIONAL HTN W/O SIGNIFICANT PROTEINURIA, UNSP TRIMESTER Status: Acute (2) Encounter for induction of labor Code(s): Z34.90 - ENCNTR FOR SUPRVSN OF NORMAL , UNSP, UNSP TRIMESTER Status: Acute (3) UTI (urinary tract infection) Status: Acute Qualifiers: Urinary tract infection type: acute pyelonephritis Qualified Code(s): N10 - Acute pyelonephritis (4) GBS (group B streptococcus) infection Code(s): A49.1 - STREPTOCOCCAL INFECTION, UNSPECIFIED SITE Status: Acute <Willie Banegas - Last Filed: 11/23/17 13:57> Attending Addendum - Attending Addendum Date/Time: 11/23/17 1125 I personally evaluated the patient and discussed the management with Dr. Daniels yesterday. I agree with the History, Examination, Assessment and Plan documented above with any addition or exceptions noted below. <Willie Banegas - Last Filed: 11/23/17 13:57>
[2017-11-22 07:53] VITALS: BP 135/75; TEMP 98.2
[2017-11-22] MEDS: Ferrous Sulfate 325 MG TAB PO SCH (08:39)
[2017-11-22] MEDS: Docusate Calcium (SURFAK) 240 MG CAP PO SCH (08:40)
== END 2017-11-22 13:10 | disposition home or self-care (01) | DRG 805 ==
LOC: L&D/OP 14:48 → L&D 17:52 → 3SW 11-21 02:08
PROVIDERS: ADMIT Family Medicine; ATTEND Family Medicine
PROC: 10E0XZZ Delivery of Products of Conception, External Approach (ICD-10-PCS; principal; 2017-11-19)
PROC: 10907ZC Drainage of Amniotic Fluid, Therapeutic from Products of Conception, Via Natural or Artificial Opening (ICD-10-PCS; 2017-11-19)
PROC: 3E0P7VZ Introduction of Hormone into Female Reproductive, Via Natural or Artificial Opening (ICD-10-PCS; 2017-11-19)
DX: O48.0 Post-term pregnancy (principal); O75.3 Other infection during labor; Z37.0 Single live birth; N39.0 Urinary tract infection, site not specified; O99.824 Streptococcus B carrier state complicating childbirth; Z3A.41 41 weeks gestation of pregnancy; O13.4 Gestational [pregnancy-induced] hypertension without significant proteinuria, complicating childbirth
CPT/HCPCS: 36415; 51702; 80053; 80306; 82570; 84156; 85025; 86780; 86850; 86900; 86901; 87340; 87389; 90471; 90686; 99285; G0008; J0696; J2001; J2210; J2405; J2540; J3490; J7050; S0020

== ENCOUNTER 2019-02-03 20:13 | Inpatient (IN) | payer OTHER ==
[2019-02-03] MEDS ORDERED: hydrALAZINE 20 MG/ML VIAL SLOW IVP PRN ×3 (20:14→22:02)
[2019-02-03] MEDS ORDERED: Ondansetron PF 4 MG/2 ML Vial IVP PRN ×2 (20:41→21:36)
[2019-02-03] MEDS ORDERED: Promethazine HCl 25 MG/ML VIAL IM PRN ×3 (20:41→22:02)
[2019-02-03] MEDS ORDERED: Lactated Ringer's 1,000 ML IV SCH ×2 (20:45→21:15)
[2019-02-03 21:10] LABS: Hemoglobin 10.5 g/dL (12.0-16.0); Mean Corpuscular HGB CONC 33.1 g/dL (32.0-36.0); Mean Corpuscular Hemoglobin 28.6 pg (27.0-31.0); Mean Corpuscular Volume 86.4 fL (78.0-98.0); Platelet Count 214 thou/uL (130-400); RBC Distribution Width 12.9 % (11.5-14.5); Red Blood Cell (RBC) Count 3.66 mill/uL (4.20-5.40); White Blood Cell (WBC) Count 19.9 thou/uL (4.8-10.8)
[2019-02-03] MEDS ORDERED: Fentanyl 100 MCG/2 ML VIAL ONE ×2 (21:12→21:38)
[2019-02-03] MEDS ORDERED: MORPHINE 5 MG/10 ML PF VIAL ONE (21:13)
[2019-02-03] MEDS ORDERED: Midazolam HCl 2 mg/2 ml Vial ONE ×2 (21:15→21:16)
[2019-02-03] MEDS ORDERED: Fentanyl 250 MCG/5 ML VIAL ONE (21:15)
[2019-02-03] MEDS ORDERED: CEFAZOLIN 2 GM in Premix Bag 1 BAG IVPB SCH (21:15)
[2019-02-03] MEDS ORDERED: Bicitra 30 ML UDCUP PO SCH (21:15)
[2019-02-03] MEDS ORDERED: Azithromycin 500 MG in Sodium Chloride 0.9% 250 ML 250 ML IVPB SCH (21:15)
[2019-02-03] MEDS ORDERED: Oxytocin 10 UNITS/ML VIAL ONE (21:19)
[2019-02-03] MEDS ORDERED: Ondansetron PF 4 MG/2 ML Vial ONE (21:31)
[2019-02-03] MEDS ORDERED: Meperidine HCl/PF 25 MG/ML VIAL SLOW IVP PRN (21:34)
[2019-02-03] MEDS ORDERED: L&D-Morphine 4 MG/ML VIAL SLOW IVP PRN (21:34)
[2019-02-03] MEDS ORDERED: HYDROmorphone 2 MG/ML VIAL SLOW IVP PRN (21:34)
[2019-02-03] MEDS ORDERED: Ondansetron HCl/PF 4 MG/2 ML Vial IVP PRN (21:34)
[2019-02-03] MEDS ORDERED: diphenhydrAMINE 25 MG CAP PO PRN ×2 (21:36→22:02)
[2019-02-03] MEDS ORDERED: diphenhydrAMINE 50 MG/ML VIAL IM PRN (21:36)
[2019-02-03] MEDS ORDERED: Naloxone HCl 0.4 mg/ml Vial IV PRN (21:36)
[2019-02-03] MEDS ORDERED: Zolpidem Tartrate 5 MG TAB PO PRN (21:36)
[2019-02-03] MEDS ORDERED: diphenhydrAMINE 50 MG/ML VIAL IVP PRN (21:36)
[2019-02-03] MEDS ORDERED: fentaNYL Citrate/PF 2,000 MCG in Sodium Chloride 0.9% 60 ML IV PRN (21:36)
[2019-02-03] MEDS ORDERED: ePHEDrine/0.9% NaCl/PF SYRINGE 50 mg/10 ml ONE (21:43)
[2019-02-03] MEDS ORDERED: PHENYLEPHRINE-NS 100 MCG/ML 10 ML SYRINGE ONE (21:43)
[2019-02-03] MEDS ORDERED: Ketorolac Tromethamine 30 MG/ML VIAL IVP SCH (21:45)
[2019-02-03] MEDS ORDERED: Communication Order-Pharmacy FS SCH (21:45)
[2019-02-03 21:48] LABS: Syphilis Antibody Nonreactive (Nonreactive); Syphilis Antibody Index 0.03 S/CO (<1.00 Non-Reactive)
[2019-02-03] MEDS ORDERED: Lanolin Ointment 7 GM TUBE TOP PRN (22:02)
[2019-02-03] MEDS ORDERED: Acetaminophen 325 MG TAB PO PRN (22:02)
[2019-02-03] MEDS ORDERED: Misoprostol 200 MCG TAB PR PRN (22:02)
[2019-02-03] MEDS ORDERED: Methylergonovine 0.2 MG/ML VIAL IM PRN (22:02)
[2019-02-03] MEDS ORDERED: HYDROcodone/Acetaminophen 5/325 mg Tablet PO PRN ×2 (22:13)
[2019-02-03] MEDS ORDERED: NS / Oxytocin 40 units/1000ml 1,000 ML IV SCH (22:15)
--- NOTE | 2019-02-03 22:25 | PDOC.LDHP ---
Labor and Delivery H&P HPI: 28 year old at 33 and 1/7 weeks with very late pre-marya care at 31 weeks, presents in advanced labor. Cervix changed from 7 to 9cm in the time it took to draw initial blood sample. Bedside ultrasound confirmed baby A vertex, baby B Breech. Patient know to have chlamydia 11 days earlier, but has been completely unreachable - phone goes to voicemail/no voicemail is set up. Multiple attempts were made. Given the Breech baby A presentation, stat C- section was called. Dr. Douglas with anesthesia joined us quickly. General anesthesia used due to rapid cervical change. Current gestational age (weeks): 33 Grav: 4 Para: 3 Current complications: other ([place] Twins) Current medications: pre-marya vitamins Allergies/Adverse Reactions: Allergies Allergy/AdvReac Type Severity Reaction Status Date / Time codeine Allergy Rash Verified 10/17/17 12:10 Social history: none - Physical Exam Vital signs reviewed and normal: yes General: NAD, resting, breathing through contractions Heart: RRR Lungs: CTAB Abdomen: gravid Extremeties: no edema FHT: category 1 - Vaginal Exam cm dilated: 7 Effacement: 100% Station: 1+ - Assessment L&D Assessment: labor - Plan Plan: admit to L&D, to OR for section
[2019-02-03 22:53] LABS: HBSAg Index 0.27 S/CO (0-0.99); Hep B Surf Ag Non-Reactive S/CO (NonReactive)
[2019-02-04 00:52] VITALS: BMI 30.7
[2019-02-04] MEDS: Lactated Ringer's 1,000 ML IV SCH ×3 (01:00→12:06)
--- NOTE | 2019-02-04 01:43 | OP ---
DATE OF PROCEDURE: 02/03/2019 I was present and scrubbed to assist the uncomplicated primary low-transverse with Dr. Ever De Jesus. Please see his note for full details. Job ID: [id number]
[2019-02-04 05:58] LABS: Mean Corpuscular HGB CONC 32.1 g/dL (32.0-36.0); Mean Corpuscular Hemoglobin 28.7 pg (27.0-31.0); Mean Corpuscular Volume 89.4 fL (78.0-98.0); Mean Platelet Volume 9.1 fL (7.4-10.4); Platelet Count 183 thou/uL (130-400); RBC Distribution Width 13.1 % (11.5-14.5); Red Blood Cell (RBC) Count 3.47 mill/uL (4.20-5.40); White Blood Cell (WBC) Count 15.9 thou/uL (4.8-10.8)
--- NOTE | 2019-02-04 07:43 | PDOC.PP ---
Post Progress Note Post Day #: 1 Subjective: Patient sore but doing ok. No other complaints. PO intake tolerated: yes (ice chips) Ambulation: no Vital Signs (12 hours) Temp Pulse Resp BP Pulse Ox 02/04/19 02:10 98.0 F 84 18 132/50 L 96 Weight Weight 190 lb - Physical Examination Respiratory: non-labored breathing Abdominal: lochia (normal), no distention, appropriately TTP Skin: CS incision dry & intact, no rash Neurological: no gross focal deficits Psychiatric: A&Ox3, normal affect Result Diagrams: 02/04/19 05:21 Additional Labs: Post Labs Blood Type O POSITIVE 02/03/19 21:01 Hep Bs Antigen Non-Reactive S/CO (NonReactive) 02/03/19 21:01 (1) Twin gestation, monochorionic diamniotic Code(s): O30.039 - TWIN , MONOCHORIONIC/DIAMNIOTIC, UNSP TRIMESTER Status: Acute (2) labor Code(s): O60.00 - LABOR WITHOUT DELIVERY, UNSPECIFIED TRIMESTER Status : Acute Qualifiers: labor trimester: third trimester labor delivery status: with delivery in third trimester (3) delivery delivered Code(s): O82 - ENCOUNTER FOR DELIVERY WITHOUT INDICATION Status: Acute - Assessment/Plan Encouraged ambulation today. Continue routine postop care.
[2019-02-04] MEDS ORDERED: Varicella virus, LIVE 0.5 ML VIAL SC ONE (09:00)
[2019-02-04] MEDS ORDERED: Measles/Mumps/Rubella 10 MCG/0.5 ML VIAL SC ONE (09:00)
[2019-02-04] MEDS ORDERED: FLU VACC QS2019-20(6MOS UP)/PF 60 MCG/0.5 ML SYRINGE IM ONE (09:00)
[2019-02-04] MEDS ORDERED: Adacel (T-DAP) 0.5 ML SYRINGE IM ONE (09:00)
[2019-02-04] MEDS: Ibuprofen 800 MG TAB PO SCH ×2 (12:06→17:22)
[2019-02-04] MEDS: Docusate Calcium (SURFAK) 240 MG CAP PO SCH ×2 (12:07→20:15)
[2019-02-04] MEDS: Prenatal Vitamin 1 TAB PO SCH (12:07)
[2019-02-04] MEDS: Ferrous Sulfate 325 MG TAB PO SCH ×2 (12:07→17:22)
[2019-02-04] MEDS ORDERED: HYDROcodone/Acetaminophen 5/325 mg Tablet PO PRN ×2 (15:09→15:10)
[2019-02-04] MEDS: HYDROcodone/Acetaminophen 5/325 mg Tablet PO PRN ×2 (15:22→20:16)
[2019-02-04] MEDS: Simethicone Chewable 80 MG TAB PO PRN ×2 (17:22→20:15)
[2019-02-05] MEDS: Ibuprofen 800 MG TAB PO SCH ×4 (00:06→22:56)
[2019-02-05] MEDS: HYDROcodone/Acetaminophen 5/325 mg Tablet PO PRN ×3 (04:37→22:55)
--- NOTE | 2019-02-05 07:28 | PRG ---
DATE OF SERVICE: 02/05/2019 TIME OF SERVICE: 0715 hours. SUBJECTIVE: The patient is postop day #2, status post section for twins with Dr. De Jesus. She received 2 units of PRBCs. The patient has no complaints and is resting well. She has not passed gas yet. She is ambulatory and voiding. OBJECTIVE: VITAL SIGNS: Stable. Afebrile. LUNGS: Clear to auscultation bilaterally. HEART: Regular rhythm. ABDOMEN: Soft, nontender. No rebound or guarding. EXTREMITIES: No clubbing, cyanosis, or edema. LABORATORY DATA: Hematocrit is 31%, which is what her preoperative hematocrit is. This of course is status post 2 units PRBC. IMPRESSION: Postop day #2, status post section for twins with atony and 2 unit PRBC transfusion, now with normal hematocrit. PLAN: Routine post care. Possibly home on 02/06. Job ID: [id number]
[2019-02-05] MEDS: Lactated Ringer's 1,000 ML IV SCH ×2 (08:32→18:12)
[2019-02-05] MEDS: Ferrous Sulfate 325 MG TAB PO SCH ×2 (09:19→18:14)
[2019-02-05] MEDS: Prenatal Vitamin 1 TAB PO SCH (09:28)
[2019-02-05] MEDS: Docusate Calcium (SURFAK) 240 MG CAP PO SCH ×2 (09:28→22:55)
[2019-02-06] MEDS: Lactated Ringer's 1,000 ML IV SCH ×3 (00:26→14:51)
[2019-02-06] MEDS: Ibuprofen 800 MG TAB PO SCH ×2 (05:24→14:51)
[2019-02-06] MEDS: Ferrous Sulfate 325 MG TAB PO SCH ×2 (07:32→17:05)
[2019-02-06 08:20] VITALS: BP 139/78; TEMP 97.6
[2019-02-06] MEDS: HYDROcodone/Acetaminophen 5/325 mg Tablet PO PRN ×2 (09:33→14:51)
[2019-02-06] MEDS: Prenatal Vitamin 1 TAB PO SCH (09:33)
[2019-02-06] MEDS: Simethicone Chewable 80 MG TAB PO PRN ×2 (09:33→14:51)
[2019-02-06] MEDS: Docusate Calcium (SURFAK) 240 MG CAP PO SCH (09:33)
--- NOTE | 2019-02-07 11:49 | DIS ---
DATE OF ADMISSION: 02/03/2019 DATE OF DISCHARGE: 02/06/2019 ADMISSION DIAGNOSES: Twin gestation at 33 weeks and 1 day with minimal care and labor with advanced cervical dilatation upon presentation to Labor and Delivery. HOSPITAL COURSE: The patient underwent a triage assessment by Dr. Augustin. It was noted that she was in labor and rapidly progressing with cervical dilatation. Assessment did show two viable twin infants. It was determined that the patient was too far dilated to attempt tocolytics or steroids, and she was immediately rushed back to the operating room as we gathered her team together. The patient was rechecked in the operating room and made further change, and was ready to start pushing. She received general anesthesia just in time, allowing us to start section. The patient then underwent section, delivering two viable female infants with the NICU team present in the room. Both babies went immediately to the NICU once stabilized. went uneventfully and the patient went to recovery, where she was awakened and allowed to be monitored in the post anesthesia unit. Once stable there, she was transferred to the floor where she had a relatively uneventful course and was discharged to home on postoperative day 3 in an excellent condition, doing well on p.o. pain medicines. Her incision appeared to be clean and dry. Her appetite was normal and she was tolerating a regular diet. She was able to shower and ambulate without difficulty and was discharged from that point with clinic followup in 2 weeks. Job ID: [id number]
--- NOTE | 2019-02-26 15:39 | OP ---
DATE OF PROCEDURE: 02/03/2019 TIME OF SERVICE: 2119 hours central standard time. PREOPERATIVE DIAGNOSIS: Twin with nearly absent care, labor at 33 weeks and 1 day with advanced cervical dilatation. POSTOPERATIVE DIAGNOSIS: Twin with nearly absent care, labor at 33 weeks and 1 day with advanced cervical dilatation. PROCEDURE PERFORMED: Low transverse section. FINDINGS: Baby A 2100 g or 4 pounds 10 ounces. Apgars of 8 and 9. Baby B, viable female weighing 1885 g or 4 pounds 2 ounces with Apgars of 7 and 9. Quantitative blood loss per my best judgment 900 mL. The documented EBL in the chart is 2400, which unfortunately more than likely contains the amniotic fluid of baby B given that this estimated blood loss is calculated typically after delivery of the first placenta and the first fetus. COMPLICATIONS: None. DETAILS OF THE PROCEDURE: The patient was consented and taken back to the operating room where spinal anesthesia was found to be adequate. She was then prepped and draped in the normal sterile fashion. A timeout was performed by the entire operative team. The incision was then marked with a marking pen tested using sharp pickups. An incision was then made with a scalpel. The incision was carried through the adipose tissue down to the underlying rectus fascia using both sharp dissection as well as cautery. Once the fascia was identified, it was incised in the midline and then the fascial incision was carried through in both lateral directions using sharp as well as cautery dissection techniques. Next, the superior aspect of the rectus fascia was grasped with 2 Allison clamps, which was tented up and the rectus muscles were dissected off using blunt dissection as well as cautery dissection. Similarly, the inferior aspect of the fascial incision was grasped with 2 Allison clamps, tented up and the rectus muscles were dissected off bluntly as well as sharply. Next, the rectus muscles were in the midline and the peritoneum identified. The peritoneum was then carefully grasped with 2 hemostats and entered sharply. The peritoneal incision was extended superiorly and inferiorly and bladder blade was placed in the lower abdomen. At this point, the uterus was identified and the bladder flap was then developed using pickups with teeth as well as Metzenbaum scissors in both lateral directions. The bladder flap was then dissected downwards using the tamping machine operator's finger as well as Metzenbaum scissors. The bladder blade was replaced. The lower uterine segment was then identified and entered sharply using a clean scalpel. The uterine incision was then dissected downwards until thin layer of muscle remained and this was entered bluntly using a hemostat to avoid any injury to the baby. The uterine incision was then stretched using two fingers in both lateral directions. An amniotomy was performed artificially using a hemostat and the baby was delivered using fundal pressure in a gentle fashion. Once out, the baby's mouth and nose were bulb suctioned, cord clamped and cut, and the baby was handed to waiting attendants. Next, the uterus was exteriorized, cleared of all clots and debris and the uterine incision was repaired with #1 Monocryl in a running locking fashion. A 2nd suture of the same type was used to obtain complete hemostasis at the uterine incision. The bladder flap was reapproximated using 3-0 Monocryl. Next, patient's left and right adnexa were inspected and appeared to be within normal limits. The posterior cul-de-sac was blotted dry and hemostasis assured. One more look at the uterine incision demonstrated hemostasis. Next, the uterus was replaced back within the abdomen. The peritoneum was reapproximated using 2-0 Monocryl without difficulty. The rectus muscles were then allowed to come back together and 0 chromic was used to aid in reapproximation of the muscle as necessary. The rectus fascia was then reapproximated in a running fashion using 0 Vicryl suture. The adipose tissue was then examined and appeared to be well approximated without any obvious separations. Finally, the skin was reapproximated with 3-0 Monocryl on a Joss needle without difficulty and Dermabond adhesive was applied to the skin. Once the glue was dry, the drapes were removed and the patient was transferred to an ambulatory bed where she was taken to recovery awake and in stable condition. Sponge, lap, and needle counts were correct x3. Job ID: [id number]
== END 2019-02-06 17:35 | disposition home or self-care (01) | DRG 788 ==
LOC: L&D/OP 20:13 → L&D 20:41 → 3SW 02-04 02:14
PROVIDERS: ADMIT Obstetrics & Gynecology; ATTEND Obstetrics & Gynecology
PROC: 10D00Z1 Extraction of Products of Conception, Low, Open Approach (ICD-10-PCS; principal; 2019-02-03)
DX: O60.14X0 Preterm labor third trimester with preterm delivery third trimester, not applicable or unspecified (principal); O30.033 Twin pregnancy, monochorionic/diamniotic, third trimester; Z3A.33 33 weeks gestation of pregnancy; Z37.2 Twins, both liveborn
CPT/HCPCS: 36415; 36430; 51702; 85027; 86780; 86850; 86900; 86901; 87340; 88307; 90471; 90686; 99285; G0008; J2250; J2274; J2405; J2590; J3010; J3490; P9016

== ENCOUNTER 2019-11-23 19:03 | Emergency (ER) | payer OTHER ==
[2019-11-24 11:36] LABS: SARS-CoV-2 MS2 Positive; SARS-CoV-2 N Gene Negative; SARS-CoV-2 S Gene Negative; SARS-CoV-2 by NAA Not Detected (NotDetected); SARS-CoV-2 orf1ab Negative
== END 2019-11-23 19:20 | disposition home or self-care (01) ==
LOC: ERS 19:03
DX: R11.10 Vomiting, unspecified (principal); J45.909 Unspecified asthma, uncomplicated; F17.210 Nicotine dependence, cigarettes, uncomplicated; Z20.828 Contact with and (suspected) exposure to other viral communicable diseases
CPT/HCPCS: 87635; 99284; U0003

== ENCOUNTER 2020-01-02 10:03 | Emergency (ER) | payer OTHER, SELFPAY ==
[2020-01-02] MEDS ORDERED: PROVENTIL INHALER 6.7 G (200 INHALATIONS) ONE (10:28)
[2020-01-02] MEDS ORDERED: Albuterol 200 PUFF (6.7GM INHALER) ONE (10:31)
[2020-01-02] MEDS ORDERED: Dexamethasone 4 mg/ml Vial ONE (11:09)
--- NOTE | 2020-01-02 11:26 | RAD ---
EXAM: Chest one view: HISTORY: Cough and congestion COMPARISON: None FINDINGS: Heart size: Within normal limits. Lungs: Clear of acute process. No evidence for confluent lobar pneumonia, significant pleural effusion, acute edema, or pneumothorax , or other significant acute process. IMPRESSION: No significant acute intrathoracic disease.
[2020-01-02 17:51] LABS: SARS-CoV-2 MS2 Positive; SARS-CoV-2 N Gene Positive; SARS-CoV-2 S Gene Positive; SARS-CoV-2 by NAA DETECTED (NotDetected); SARS-CoV-2 orf1ab Positive
== END 2020-01-02 13:00 | disposition home or self-care (01) ==
LOC: ERS 10:03
DX: U07.1 COVID-19 (principal); J45.901 Unspecified asthma with (acute) exacerbation; J06.9 Acute upper respiratory infection, unspecified; F17.210 Nicotine dependence, cigarettes, uncomplicated; Z79.899 Other long term (current) drug therapy
CPT/HCPCS: 71045; 87635; 93005; J1100; U0003

== ENCOUNTER 2020-03-08 09:43 | Emergency (ER) | payer SELFPAY ==
[2020-03-08 10:13] LABS: Bilirubin Negative (Negative); Blood, Urine 1+ (Negative); Clarity Clear (Clear); Glucose, Urine (Dipstick) Normal (Negative); Ketone, Urine Trace mg/dL (Negative); Leukocyte 75 Leu/uL (Negative); Nitrite Negative (Negative); Protein, Urine (Dipstick) Negative (Neg-Trace); RBC/HPF 0-3 HPF (0-3); Specific Gravity, Urine 1.004 (1.002-1.036); Squamous Epithelial 0-3 HPF (0-3); Urobilinogen Normal mg/dL (Less than 2); pH, Urine 6.5 (5.0-9.0)
[2020-03-08 10:14] LABS: Bacteria/HPF 1+ HPF (None Seen)
[2020-03-08 10:15] LABS: Pregnancy Test - Urine (BHCG) Negative (Negative); Pregu Control Background? CLEAR/WHITE (CLR/WHITE); Pregu Control Bar Appear? YES (CONTROL BAR); Specific Gravity 1.004 (1.002-1.036)
[2020-03-08 10:20] LABS: #Monocytes 1.6 thou/uL (0.11-0.59); #Neutrophils 11.6 thou/uL (1.40-6.50); %Basophils 0.3 % (0.0-1.0); %Eosinophils 0.3 % (0.0-10.0); %Monocytes 10.6 % (0.0-10.0); %Neutrophils 75.8 % (42.0-75.0); Hemoglobin 12.6 g/dL (12.0-16.0); Mean Corpuscular HGB CONC 32.5 g/dL (32.0-36.0); Mean Corpuscular Hemoglobin 28.6 pg (27.0-31.0); Mean Platelet Volume 7.4 fL (7.4-10.4); Platelet Count 377 thou/uL (130-400); RBC Distribution Width 13.7 % (11.5-14.5); Red Blood Cell (RBC) Count 4.41 mill/uL (4.20-5.40); White Blood Cell (WBC) Count 15.3 thou/uL (4.8-10.8)
[2020-03-08 10:41] LABS: ALT (SGPT) 91 U/L (8-55); AST (SGOT) 74 U/L (5-34); Albumin 4.1 g/dL (3.5-5.0); Alkaline Phosphatase 161 U/L (40-110); Anion Gap 19 mmol/L (10-20); BUN (Urea Nitrogen) 9 mg/dL (7.0-18.7); Bilirubin, Total 1.3 mg/dL (0.2-1.2); Calc. Creatinine Clearance 0 mL/min (70-130); Calcium 9.5 mg/dL (7.8-10.44); Carbon Dioxide 19 mmol/L (22-29); Chloride 100 mmol/L (98-107); Globulin 4.3 g/dL (2.4-3.5); Glucose 97 mg/dL (70-105); Lipase Less than 4 U/L (8-78); Potassium 3.6 mmol/L (3.5-5.1); Protein, Total 8.4 g/dL (6.0-8.3); Sodium 134 mmol/L (136-145)
--- NOTE | 2020-03-08 10:58 | CT ---
CT Stone Protocol 03/08/2020 10:30 AM HISTORY: Right flank pain with nausea vomiting and fever. COMPARISON: None. Technique: Multiple contiguous axial CT images are obtained through the abdomen and pelvis without IV contrast. Coronal reformats are provided. FINDINGS: This examination is limited for the evaluation of solid organs and vascular structures due to the lac k of intravenous contrast. Lower Chest: Lung bases are clear. Liver: Grossly normal non-enhanced CT appearance. Gallbladder: Suggestion of minimal increased density in dependent portion gallbladder lumen which cou ld be related to minimal amount of gallbladder sludge and/or gallbladder calculi. Pancreas: Grossly normal nonenhanced CT appearance. Spleen: Grossly normal nonenhanced CT appearance. Adrenals: Grossly normal nonenhanced CT appearance. Kidneys and ureters: No renal or ureteral calculi are seen bilaterally. There is no evidence of hydro nephrosis. Mild perinephric inflammatory stranding is seen primarily at the inferior pole right kidney. In addition, there is slight heterogeneity of the inferior pole right kidney with questionabl e subcapsular perinephric collection which could be related to perinephric hematoma. Questionable slight thickening of the ardon of the renal pelvis. Associated pyelonephritis is a possibility. Urinary bladder: Urinary bladder has a normal CT appearance. Reproductive Organs: A 1.8 cm low-density lesions in the right adnexa which may represent a small rig ht ovarian cyst. Uterus and left adnexal structures demonstrate a grossly normal nonenhanced CT appearance. Gas density is present within the vagina which may related to female hygiene products. Lymph Nodes: No enlarged lymph nodes. Bowel: Small amount retained fecal material in the colon much greater in the region of the rectum the rectum is distended measuring 8.1 cm in greatest transverse dimension. Appendix: The appendix is normal in caliber. Peritoneum: No free fluid, free air, or fluid collection. Vessels: Abdominal aorta is normal in caliber.. Abdominal Wall: within normal limits. Bones: No lytic or sclerotic osseous lesions. IMPRESSION: 1. Inflammatory changes inferior pole right kidney with heterogeneity and areas of slight increased d ensity at the inferior pole right kidney which could represent a small perinephric hematoma. There is no inflammatory changes adjacent to the midportion or upper pole of the right kidney. Associated p yelonephritis would be difficult to entirely exclude. No renal or ureteral calculi are seen bilaterally, and there is no hydronephrosis. CT abdomen and pelvis with IV contrast is recommended fo r further evaluation of this finding. 2. Distention of the rectum measuring 8.1 cm with moderate amount retained fecal material in the rect um. 3. Above findings discussed with ALBA Garcia in the emergency department on 03/08/2020 at 1054 hour s.
[2020-03-08] MEDS ORDERED: Ketorolac Tromethamine 30 MG/ML VIAL ONE (11:00)
[2020-03-08] MEDS ORDERED: Ondansetron PF 4 MG/2 ML Vial ONE (11:00)
[2020-03-08] MEDS ORDERED: Piperacillin/Tazobactam 3.375 GM VIAL ONE (11:01)
--- NOTE | 2020-03-08 11:25 | CT ---
CT OF THE ABDOMEN AND PELVIS WITH IV CONTRAST INDICATION: Abdominal pain with abnormal appearance of the right kidney on a noncontrast CT evaluatio n. Patient is experiencing right-sided flank pain with nausea vomiting and hematuria COMPARISON: Noncontrast CT the abdomen and pelvis dated March 08, 2020 FINDINGS: ABDOMEN: Lung bases: Clear Liver: No focal lesion. Gallbladder: Normal appearing. Pancreas: Normal. Adrenal glands: Normal. Spleen: Normal. Kidneys and ureters: There is heterogeneous enhancement of the superior pole, mid aspect and inferior pole right kidney suspicious for a diffuse pyelonephritis of the right kidney. There is right-sided perinephric inflammatory stranding. There is a small amount of fluid in the perinephric s pace. No drainable fluid collection is evident. The left kidney is normal-appearing. Vasculature: Normal. Lymph nodes:No lymphadenopathy. Free fluid in abdomen:No free fluid is evident. PELVIS: Small and large bowel: Normal Appendix:Normal Bladder: Normal. Rectal and perirectal soft tissues:Normal. Reproductive structures: There is a gas filled tampon within the vaginal vault Free fluid in pelvis: No free fluid is evident. Lymphadenopathy pelvis: No lymphadenopathy is evident. Osseous structures: No acute osseous abnormality. No destructive osteolytic or osteoblastic lesion i s identified. Soft tissues:Normal. IMPRESSION: 1. Findings most consistent with right-sided pyelonephritis. 2. Findings were called to Sebastian Dominguez at 11:20 AM on March 08, 2020.
[2020-03-08] MEDS ORDERED: Iopamidol-370 76% 500 ML 1 ML ONE (12:11)
== END 2020-03-08 12:45 | disposition home or self-care (01) ==
LOC: ERS 09:43
DX: N10 Acute pyelonephritis (principal); J45.909 Unspecified asthma, uncomplicated; F17.210 Nicotine dependence, cigarettes, uncomplicated; Z79.51 Long term (current) use of inhaled steroids
CPT/HCPCS: 36415; 74176; 74177; 80053; 81003; 81015; 81025; 83690; 85025; 87077; 87086; 87186; 96365; 96375; J1885; J2405; J2543; Q9967

== ENCOUNTER 2020-06-04 09:06 | Emergency (ER) | payer OTHER ==
[2020-06-04 11:08] LABS: Bacteria/HPF None Seen HPF (None Seen); Bilirubin Negative (Negative); Blood, Urine Trace (Negative); Clarity Clear (Clear); Glucose, Urine (Dipstick) Normal (Negative); Ketone, Urine Negative (Negative); Leukocyte Negative Leu/uL (Negative); Nitrite Negative (Negative); Protein, Urine (Dipstick) Negative (Neg-Trace); RBC/HPF 0-3 HPF (0-3); Specific Gravity, Urine 1.008 (1.002-1.036); Squamous Epithelial 0-3 HPF (0-3); Urobilinogen Normal mg/dL (Less than 2); WBC/HPF 0-3 HPF (0-3); pH, Urine 7.5 (5.0-9.0)
[2020-06-04 11:14] LABS: Pregnancy Test - Urine (BHCG) Negative (Negative); Pregu Control Background? CLEAR/WHITE (CLR/WHITE); Pregu Control Bar Appear? YES (CONTROL BAR); Specific Gravity 1.008 (1.002-1.036)
== END 2020-06-04 10:54 | disposition left against medical advice (07) ==
LOC: ERS 09:06
DX: Z53.21 Procedure and treatment not carried out due to patient leaving prior to being seen by health care provider (principal)
CPT/HCPCS: 81003; 81015; 81025

== ENCOUNTER 2020-07-14 17:16 | Emergency (ER) | payer OTHER, SELFPAY | END 2020-07-14 19:34 | disposition home or self-care (01) | LOC: ERS 17:16 | DX: S06.9X1A Unspecified intracranial injury with loss of consciousness of 30 minutes or less, initial encounter (principal); S80.02XA Contusion of left knee, initial encounter; S00.03XA Contusion of scalp, initial encounter; J45.909 Unspecified asthma, uncomplicated; F17.210 Nicotine dependence, cigarettes, uncomplicated; V69.40XA Driver of heavy transport vehicle injured in collision with unspecified motor vehicles in traffic accident, initial encounter | CPT/HCPCS: 70450; 72125 ==

== ENCOUNTER 2021-05-20 10:58 | Emergency (ER) | payer MEDICAID, SELFPAY ==
[2021-05-20 12:15] LABS: #Eosinphils 0.1 thou/uL (0.0-0.7); #Lymphocytes 2.3 thou/uL (1.20-3.40); #Monocytes 0.5 thou/uL (0.11-0.59); #Neutrophils 4.4 thou/uL (1.40-6.50); %Basophils 0.2 % (0.0-1.0); %Eosinophils 1.3 % (0.0-10.0); %Lymphocytes 30.8 % (21.0-51.0); %Monocytes 7.4 % (0.0-10.0); %Neutrophils 60.3 % (42.0-75.0); Hemoglobin 13.9 g/dL (12.0-16.0); Mean Corpuscular HGB CONC 32.6 g/dL (32.0-36.0); Mean Corpuscular Hemoglobin 31.2 pg (27.0-31.0); Mean Corpuscular Volume 95.6 fL (78.0-98.0); Mean Platelet Volume 7.5 fL (7.4-10.4); Platelet Count 260 thou/uL (130-400); Red Blood Cell (RBC) Count 4.45 mill/uL (4.20-5.40); White Blood Cell (WBC) Count 7.3 thou/uL (4.8-10.8)
[2021-05-20 12:49] LABS: Bilirubin Negative (Negative); Blood, Urine Negative (Negative); Clarity Clear (Clear); Glucose, Urine (Dipstick) Normal (Negative); Ketone, Urine Negative (Negative); Leukocyte Negative Leu/uL (Negative); Nitrite Negative (Negative); Protein, Urine (Dipstick) Negative (Neg-Trace); Specific Gravity, Urine 1.024 (1.002-1.036); Urobilinogen Normal mg/dL (Less than 2); pH, Urine 6.5 (5.0-9.0)
== END 2021-05-20 14:32 | disposition home or self-care (01) ==
LOC: ERS 10:58
DX: O20.0 Threatened abortion (principal); Z3A.01 Less than 8 weeks gestation of pregnancy; J45.909 Unspecified asthma, uncomplicated; F17.210 Nicotine dependence, cigarettes, uncomplicated
CPT/HCPCS: 36415; 76856; 81003; 84702; 85025; 86900; 86901

== ENCOUNTER 2021-07-22 18:01 | Emergency (ER) | payer MEDICAID, OTHER, SELFPAY ==
[2021-07-22] MEDS ORDERED: diphenhydrAMINE 25 MG CAP ONE (18:05)
== END 2021-07-22 19:33 | disposition home or self-care (01) ==
LOC: ERS 18:01
DX: T63.461A Toxic effect of venom of wasps, accidental (unintentional), initial encounter (principal); J45.909 Unspecified asthma, uncomplicated; F17.210 Nicotine dependence, cigarettes, uncomplicated
CPT/HCPCS: 99282